=== PATIENT | female | born 1995 | race Hispanic/Latino ===

== ENCOUNTER 2022-09-14 18:10 | Emergency (ER) | payer SELFPAY ==
[2022-09-14] MEDS ORDERED: Ondansetron ODT 4 MG TAB ONE (18:41)
[2022-09-14 18:59] LABS: #Eosinphils 0.1 10x3/uL (0.0-0.5); #Monocytes 0.4 10x3/uL (0.0-1.1); #Neutrophils 4.3 10x3/uL (1.5-8.4); %Basophils 0.5 % (0.0-2.0); %Eosinophils 1.1 % (0.0-6.0); %Lymphocytes 26.5 % (18.0-47.0); %Monocytes 5.9 % (0.0-10.0); %Neutrophils 65.7 % (40.0-75.0); Hemoglobin 12.3 g/dL (12.0-15.5); Mean Corpuscular HGB CONC 34.7 g/dL (32.0-36.0); Mean Corpuscular Hemoglobin 29.4 pg (27.0-33.0); Mean Corpuscular Volume 84.7 fl (81.6-98.3); Mean Platelet Volume 9.3 fl (7.4-10.4); Platelet Count 235 10x3/uL (150-450); Red Blood Cell (RBC) Count 4.18 10x6/uL (3.90-5.03); White Blood Cell (WBC) Count 6.6 10x3/uL (3.5-10.5)
[2022-09-14 19:02] LABS: ALT (SGPT) 10 U/L (8-55); AST (SGOT) 16 U/L (5-34); Albumin 3.7 g/dL (3.5-5.0); Alkaline Phosphatase 49 U/L (40-110); Anion Gap 11 mmol/L (10-20); BUN (Urea Nitrogen) 6 mg/dL (7.0-18.7); Bilirubin, Total 0.4 mg/dL (0.2-1.2); Calc. Creatinine Clearance 0 mL/min (70-130); Calcium 8.9 mg/dL (7.8-10.44); Carbon Dioxide 20 mmol/L (22-29); Chloride 108 mmol/L (98-107); Estimated GFR 127; Globulin 3.3 g/dL (2.4-3.5); Glucose 121 mg/dL (70-105); Potassium 3.4 mmol/L (3.5-5.1); Sodium 136 mmol/L (136-145)
[2022-09-14 22:14] LABS: Bilirubin Neg (Negative); Blood, Urine Negative (Negative); Clarity Cloudy (Clear); Glucose, Urine (Dipstick) Normal (Negative); Ketone, Urine 15 mg/dL (Negative); Leukocyte Negative (Negative); Nitrite Negative (Negative); Protein, Urine (Dipstick) Negative (Neg-Trace); Specific Gravity, Urine 1.015 (1.005-1.030); Urobilinogen Normal mg/dL (Less than 2)
== END 2022-09-14 22:43 | disposition home or self-care (01) ==
LOC: CSHERS 18:10
DX: O21.9 Vomiting of pregnancy, unspecified (principal); Z3A.12 12 weeks gestation of pregnancy
CPT/HCPCS: 80053; 81003; 82010; 85025; 96360; Q0162

== ENCOUNTER 2022-10-26 15:07 | Outpatient (CLI) | payer SELFPAY | END 2022-10-26 15:08 | disposition home or self-care (01) | LOC: CSHRAD 15:07 | PROVIDERS: ATTEND Advanced Practice Midwife | DX: Z34.91 Encounter for supervision of normal pregnancy, unspecified, first trimester (principal) | CPT/HCPCS: 76805 ==

== ENCOUNTER → 2024-07-19 18:30 | Inpatient (IN) | payer MEDICAID, OTHER ==
[2024-07-17 22:01] VITALS: BMI 33.1
[2024-07-17] MEDS: Lactated Ringer's 1,000 ML IV SCH (22:54)
[2024-07-17 23:12] LABS: Hematocrit 34.7 % (34.9-44.5); Hemoglobin 11.8 g/dL (12.0-15.5); Mean Corpuscular Hemoglobin 30.5 pg (27.0-33.0); Mean Corpuscular Volume 89.7 fL (81.6-98.3); Mean Platelet Volume 9.3 fL (7.4-10.4); Platelet Count 193 10x3/uL (150-450); RBC Distribution Width 13.1 % (11.5-14.5); Red Blood Cell (RBC) Count 3.87 10x6/uL (3.90-5.03); White Blood Cell (WBC) Count 8.5 10x3/uL (3.5-10.5)
[2024-07-17 23:44] LABS: HBsAg Index 0.15 S/CO (0-0.99); Hep B Surf Ag - L&D Non-Reactive S/CO (NonReactive)
[2024-07-17 23:45] LABS: Syphilis Antibody Nonreactive (Nonreactive); Syphilis Antibody Index 0.05 S/CO (<1.00 Non-Reactive)
[2024-07-17] MEDS: Misoprostol 100 MCG TAB PO SCH (23:45)
[2024-07-18] MEDS: fentaNYL 50 mcg/mL 1 mL Vial SLOW IVP PRN (07:11)
[2024-07-18] MEDS: fentaNYL 2 mcg/Ropivacaine 0.2% Epidural 100 ML CADD EPIDURAL SCH (13:31)
[2024-07-18] MEDS: Oxytocin 30 units/NS 500 ML 500 ML IV SCH (14:25)
[2024-07-18] MEDS: Terbutaline Sulfate 1 MG/ML VIAL ONE (18:12)
[2024-07-18] MEDS: fentaNYL/Ropivacaine Epidural 100 ML ONE (18:13)
[2024-07-18] MEDS: Docusate 100 MG CAP PO SCH (21:40)
[2024-07-18] MEDS: Ibuprofen 800 MG TAB PO SCH (21:40)
[2024-07-19] MEDS: HYDROcodone/Acetaminophen 5/325 mg Tablet PO PRN (03:10)
[2024-07-19] MEDS: Ferrous Sulfate 325 MG TAB PO SCH (08:54)
[2024-07-19] MEDS: Prenatal Vitamin 1 TAB PO SCH (08:56)
[2024-07-19 11:35] VITALS: TEMP 98
[2024-07-19] MEDS: Benzocaine-Menthol 82.5 ML CAN TOP PRN (13:47)
[2024-07-19 16:25] VITALS: BP 104/65
[~2024-07-19 18:30] MED LIST: Acetaminophen 325 MG TAB PO PRN; Acetaminophen 500 MG TAB PO PRN; Bisacodyl 10 MG SUPP PR PRN; Boostrix 0.5 ML (Tdap) VIAL (>/=7 yrs of age) IM ONE; Bupivacaine 0.25% HCL 30 ML VIAL ONE; Bupivacaine HCl 0.5%/Epinephrine 1:200,000/PF 30 ml Vial ONE; Communication Order-Pharmacy FS SCH; Diphenoxylate HCl/Atropine Tablet PO PRN; HYDROcodone/Acetaminophen 5/325 mg Tablet PO PRN; Lactated Ringer's 500 ML IV PRN; Lanolin Ointment 7 GM TUBE TOP PRN; Lidocaine 1% (PF) 30 ML VIAL SC PRN; Methylergonovine 0.2 MG/ML VIAL IM PRN; Milk Of Magnesia 30 ML UDCUP PO PRN; Moisturizing Cream (Eucerin) 113 GM JAR TOP PRN; Naloxone HCl 0.4 mg/ml Vial IVP PRN; Ondansetron PF 4 MG/2 ML Vial IVP PRN; Preparation H Ointment 28 GM TUBE PR PRN; Promethazine HCl 25 MG/ML VIAL IM PRN; Tranexamic Acid 1,000 MG/10 ML VIAL IVP PRN; diphenhydrAMINE 25 MG CAP PO PRN; diphenhydrAMINE 50 MG/ML VIAL IVP PRN; ePHEDrine Sulfate 50 MG/10 ML VIAL SLOW IVP PRN; hydrALAZINE 20 MG/ML VIAL SLOW IVP PRN
== END | disposition home or self-care (01) | DRG 807 ==
LOC: CSHLD 07-17 20:39 → CSHPP 07-18 19:40
PROVIDERS: ADMIT Family Medicine; ATTEND Family Medicine
PROC: 10E0XZZ Delivery of Products of Conception, External Approach (ICD-10-PCS; principal; 2024-07-18)
PROC: 0HQ9XZZ Repair Perineum Skin, External Approach (ICD-10-PCS; 2024-07-18)
PROC: 10907ZC Drainage of Amniotic Fluid, Therapeutic from Products of Conception, Via Natural or Artificial Opening (ICD-10-PCS; 2024-07-18)
DX: O70.0 First degree perineal laceration during delivery (principal); Z37.0 Single live birth; Z3A.39 39 weeks gestation of pregnancy
CPT/HCPCS: 51702; 85027; 86780; 86850; 86900; 86901; 87340; J0665; J2590; J3010; J7120